=== PATIENT | male | born 1995 | race Caucasian/White ===

== ENCOUNTER 2020-06-26 18:03 | Emergency (ER) | payer OTHER ==
[~2020-06-26] VITALS: Ht 177.8 cm; Wt 86.2 kg
[2020-06-26 18:10] VITALS: Ht 177.8 cm; Wt 86.2 kg
== END 2020-06-26 18:30 | disposition other institution (70) ==
LOC: ED 18:03
DX: Z02.89 Encounter for other administrative examinations (principal)